=== PATIENT | male | born 1945 | race Caucasian/White ===

== ENCOUNTER 2020-11-26 13:05 | Outpatient (CLI) | payer MEDICARE, OTHER ==
[2020-11-26] MEDS ORDERED: OMNIPAQUE 350 MG/ML, 150 ML BOTTLE ONE (14:30)
== END 2020-11-26 23:59 | disposition home or self-care (01) ==
LOC: CFH 13:05 → RAD 23:59
PROVIDERS: ATTEND Internal Medicine Clinical Cardiac Electrophysiology
DX: I25.10 Atherosclerotic heart disease of native coronary artery without angina pectoris (principal); J84.10 Pulmonary fibrosis, unspecified; I11.0 Hypertensive heart disease with heart failure; I48.91 Unspecified atrial fibrillation; I50.33 Acute on chronic diastolic (congestive) heart failure; J98.4 Other disorders of lung
CPT/HCPCS: 71046; 75572; 82565; Q9967

== ENCOUNTER 2020-11-28 11:11 | Observation (INO) | payer MEDICARE, OTHER ==
[~2020-11-28] VITALS: Ht 182.9 cm; Wt 118.6 kg
[2020-11-28] MEDS ORDERED: SODIUM CHLORIDE 0.9% 1,000 ML IV SCH (12:00)
[2020-11-28] MEDS ORDERED: APIX5TAB PO (12:05)
[2020-11-28] MEDS ORDERED: FURO20TA3 PO (12:05)
[2020-11-28] MEDS ORDERED: SPIR25TA5 PO (12:05)
[2020-11-28] MEDS ORDERED: LISI-170 PO (12:05)
[2020-11-28] MEDS ORDERED: LEVO50TA5 PO (12:05)
[2020-11-28] MEDS ORDERED: AMIO200T42 PO (12:05)
[2020-11-28 12:14] VITALS: BP 117/83
[2020-11-28 12:24] LABS: BASOPHILS % (AUTO) 1 % (0-1); EOSINOPHILS % (AUTO) 1 % (1-7); LYMPHOCYTES % (AUTO) 18 % (22-44); MEAN CORPUSCULAR HEMOGLOBIN 32.6 pg (27.5-34.5); MEAN CORPUSCULAR HGB CONC 33.3 g/dL (33.2-36.2); MEAN PLATELET VOLUME 7.9 fL (7.4-10.4); MONOCYTES % (AUTO) 9 % (2-9); NEUTROPHILS % (AUTO) 71 % (42-75); PLATELET COUNT 170 x10^3/uL (130-400); RED BLOOD COUNT 5.66 x10^6/uL (4.38-5.82); RED CELL DISTRIBUTION WIDTH 18.1 % (9.4-14.8)
[2020-11-28 12:37] LABS: ALANINE AMINOTRANSFERASE 38 U/L (12-78); ALBUMIN 3.6 g/dL (3.4-5.0); ANION GAP 6 mmol/L (5-15); CALCIUM 9.4 mg/dL (8.5-10.1); CHLORIDE 102 mmol/L (98-107)
[2020-11-28 12:40] LABS: ALKALINE PHOSPHATASE 45 U/L (45-117); BILIRUBIN,TOTAL 1.3 mg/dL (0.2-1.0); TOTAL PROTEIN 7.3 g/dL (6.4-8.2)
[2020-11-28] MEDS ORDERED: FENTANYL PF 250 MCG/5ML ONE (13:09)
[2020-11-28] MEDS ORDERED: MIDAZOLAM 1 MG/ML, 2ML ONE (13:09)
[2020-11-28] MEDS ORDERED: LIDOCAINE 2%, 20ML ONE (13:23)
[2020-11-28] MEDS ORDERED: HYDROCORTISONE 100 MG INJ. ONE (13:51)
[2020-11-28] MEDS ORDERED: EPINEPHRINE 1 MG/ML, 1ML ONE (16:36)
[2020-11-28] MEDS ORDERED: HEPARIN 1,000 UNITS/ML, 10ML ONE ×3 (16:36→16:37)
[2020-11-28] MEDS ORDERED: ROCURONIUM 10MG/ML,5ML ONE (16:37)
[2020-11-28] MEDS ORDERED: PROPOFOL 10 MG/ML, 20ML ONE (16:37)
[2020-11-28] MEDS ORDERED: DEXAMETHASONE 4 MG/ML, 1ML ONE (16:37)
[2020-11-28] MEDS ORDERED: ONDANSETRON 2MG/ML, 2ML ONE (17:28)
[2020-11-28] MEDS ORDERED: hydrALAzine 20 MG/ML, 1ML IV PRN (18:00)
[2020-11-28] MEDS ORDERED: EPHEDRINE 50 MG/ML, 1ML IVPush PRN (18:00)
[2020-11-28] MEDS ORDERED: DIPHENHYDRAMINE 50 MG/ML, 1ML IVPush PRN ×2 (18:00)
[2020-11-28] MEDS ORDERED: FENTANYL PF 100 MCG/2ML IV PRN (18:00)
[2020-11-28] MEDS ORDERED: MIDAZOLAM 1 MG/ML, 2ML IV PRN (18:00)
[2020-11-28] MEDS ORDERED: DIAZEPAM 5 MG/ML, 2ML IVPush PRN (18:00)
[2020-11-28] MEDS ORDERED: PROMETHAZINE 25 MG/ML, 1ML IVPush PRN (18:00)
[2020-11-28] MEDS ORDERED: MEPERIDINE/PF 25MG/0.5ML IVPush PRN (18:00)
[2020-11-28] MEDS ORDERED: PROMETHAZINE 12.5 MG SUPP PR PRN (18:00)
[2020-11-28] MEDS ORDERED: LABETALOL 5MG/ML, 20ML IV PRN (18:00)
[2020-11-28] MEDS ORDERED: ONDANSETRON 2MG/ML, 2ML IVPush PRN ×2 (18:00)
[2020-11-28] MEDS ORDERED: OXYcodone 5 MG/5 ML ORAL.SOL UDC PO PRN (18:00)
[2020-11-28] MEDS ORDERED: ALBUTEROL SULFATE 2.5 MG/3 ML NPPB PRN (18:00)
[2020-11-28] MEDS ORDERED: HYDROmorphone 1 MG/ML, 1ML INJ IVPush PRN (18:00)
[2020-11-28] MEDS ORDERED: ACETAMINOPHEN 325 MG TABLET PO PRN ×2 (18:00)
[2020-11-28] MEDS ORDERED: APIXABAN 5 MG TABLET ONE (18:17)
[2020-11-28 20:00] VITALS: BP 104/70
[2020-11-28] MEDS ORDERED: ZOLPIDEM 5MG TABLET PO PRN (21:00)
[2020-11-28] MEDS: APIXABAN 5 MG TABLET PO SCH (22:23)
[2020-11-28] MEDS: COLCHICINE 0.6 MG CAPSULE PO SCH (22:23)
[2020-11-29] VITALS: BP 105/69
[2020-11-29] MEDS ORDERED: PANTOPRAZOLE 20MG TABLET PO SCH (06:00)
[2020-11-29 08:06] VITALS: BP 118/76
[2020-11-29] MEDS: APIXABAN 5 MG TABLET PO SCH (08:14)
[2020-11-29] MEDS: COLCHICINE 0.6 MG CAPSULE PO SCH (08:14)
[2020-11-29] MEDS ORDERED: COLC0.6C3 PO (08:26)
[2020-11-29] MEDS ORDERED: PANT20TA4 PO (08:26)
[2020-11-29] MEDS ORDERED: ACET325T26 PO (08:26)
[2020-11-29 08:40] VITALS: BP 118/73
== END 2020-11-29 11:29 | disposition home or self-care (01) ==
LOC: CACL 11:11 → ORIP 18:37 → 5SO 19:11
PROVIDERS: ADMIT Internal Medicine Clinical Cardiac Electrophysiology; ATTEND Internal Medicine Clinical Cardiac Electrophysiology
DX: I48.0 Paroxysmal atrial fibrillation (principal); Z20.822 Contact with and (suspected) exposure to COVID-19; I48.92 Unspecified atrial flutter; D68.69 Other thrombophilia; I42.9 Cardiomyopathy, unspecified; I10 Essential (primary) hypertension; E66.9 Obesity, unspecified; E03.9 Hypothyroidism, unspecified; Z79.01 Long term (current) use of anticoagulants; Z79.899 Other long term (current) drug therapy
CPT/HCPCS: 36415; 76937; 80053; 85025; 85347; 93005; 93306; 93312; 93321; 93325; 93613; 93655; 93656; 93657; 93662; C1730; C1732; C1759; C1766; C1893; C1894; G0378; J0171; J1100; J1644; J1720; J2250; J2405; J2704; J3010; J3490; U0003; U0005

== ENCOUNTER 2020-11-30 16:39 | Observation (INO) | payer MEDICARE, OTHER ==
[~2020-11-30] VITALS: Ht 182.9 cm; Wt 115.3 kg
[~2020-11-30 16:39] MED LIST: ACET325T26 PO; AMIO200T42 PO; APIX5TAB PO; COLC0.6C3 PO; FURO20TA3 PO; LEVO50TA5 PO; LISI-170 PO; PANT20TA4 PO; SPIR25TA5 PO
[2020-11-30 17:19] LABS: BASOPHILS % (AUTO) 0 % (0-1); EOSINOPHILS % (AUTO) 0 % (1-7); LYMPHOCYTES % (AUTO) 5 % (22-44); MEAN CORPUSCULAR HEMOGLOBIN 33.4 pg (27.5-34.5); MEAN CORPUSCULAR HGB CONC 33.4 g/dL (33.2-36.2); MEAN PLATELET VOLUME 7.9 fL (7.4-10.4); MONOCYTES % (AUTO) 11 % (2-9); NEUTROPHILS % (AUTO) 83 % (42-75); PLATELET COUNT 115 x10^3/uL (130-400); RED BLOOD COUNT 4.99 x10^6/uL (4.38-5.82); RED CELL DISTRIBUTION WIDTH 19.2 % (9.4-14.8)
[2020-11-30] MEDS ORDERED: MORPHINE SULFATE 4 MG/ML, 1ML ONE ×2 (17:25→18:14)
[2020-11-30 17:28] LABS: ALANINE AMINOTRANSFERASE 41 U/L (12-78); ALBUMIN 3.2 g/dL (3.4-5.0); ANION GAP 6 mmol/L (5-15); CALCIUM 8.5 mg/dL (8.5-10.1); CHLORIDE 100 mmol/L (98-107)
[2020-11-30] MEDS: MORPHINE SULFATE 4 MG/ML, 1ML IVPush PRN ×2 (17:30→18:16)
[2020-11-30] MEDS ORDERED: SODIUM CHLORIDE FLUSH 10ML SYR IVF ONE (17:30)
[2020-11-30 17:33] LABS: ALKALINE PHOSPHATASE 40 U/L (45-117); BILIRUBIN,TOTAL 1.5 mg/dL (0.2-1.0); CREATININE 1.49 mg/dL (0.7-1.3); TOTAL PROTEIN 6.7 g/dL (6.4-8.2)
[2020-11-30 17:40] LABS: TROPONIN I 0.135 ng/mL (0.000-0.045)
[2020-11-30] MEDS ORDERED: SODIUM CHLORIDE 0.9%, 500ML IVBOLUS ONE (18:00)
--- NOTE | 2020-11-30 18:15 | NUR ---
PT BACK FROM RADIOLOGY. PT REPORTS PAIN HAS IMPROVED TO A 10/05. PT ON CONTINUOUS CARDIAC AND SPO2 MONITORING. CALL LIGHT W/IN REACH. PT SPOUSE AT BEDSIDE.
--- NOTE | 2020-11-30 18:36 | NUR ---
PT'S PAIN HAS IMPROVED TO A 5/10. PT DENIES NEEDS AT THIS TIME. VSS.
--- NOTE | 2020-11-30 19:21 | NUR ---
PT ASSISTED TO LAYING IN GURNEY ON RIGHT SIDE, TOLERATING WELL. PT INITIALLY UNABLE TO LAY FLAT. PT PAIN 5/10. DENIES FURTHER NEEDS AT THIS TIME. VSS.
[2020-11-30] MEDS ORDERED: FENTANYL PF 100 MCG/2ML ONE (19:26)
[2020-11-30] MEDS ORDERED: COLCHICINE 0.6 MG CAPSULE ONE (19:26)
[2020-11-30] MEDS ORDERED: COLCHICINE 0.6 MG CAPSULE PO ONE (19:30)
[2020-11-30] MEDS ORDERED: FENTANYL PF 100 MCG/2ML IVPush ONE (19:30)
--- NOTE | 2020-11-30 20:05 | NUR ---
REPORT CALLED TO ADILSON VALENZUELA. PT READY TO GO TO 515.
[2020-11-30] MEDS ORDERED: MELATONIN 5 MG TABLET PO PRN (20:30)
[2020-11-30] MEDS ORDERED: DOCUSATE 100 MG CAPSULE PO PRN (20:30)
[2020-11-30] MEDS ORDERED: ACETAMINOPHEN 325 MG TABLET PO PRN ×2 (20:30)
[2020-11-30] MEDS ORDERED: ONDANSETRON 2MG/ML, 2ML IVPush PRN (20:30)
[2020-11-30] MEDS: COLCHICINE 0.6 MG CAPSULE PO SCH (20:48)
[2020-11-30 20:56] VITALS: BP 107/74
[2020-11-30] MEDS: APIXABAN 5 MG TABLET PO SCH (22:05)
[2020-11-30] MEDS: morphine SULFATE 10 MG/ML, 1ML IVPush PRN ×2 (22:05→22:36)
[2020-11-30] MEDS: FUROSEMIDE 20 MG TABLET PO SCH (22:05)
[2020-11-30 23:49] LABS: TROPONIN I 0.082 ng/mL (0.000-0.045)
[2020-12-01 01:35] VITALS: BP 101/64
[2020-12-01] MEDS: morphine SULFATE 10 MG/ML, 1ML IVPush PRN ×3 (01:35→06:41)
[2020-12-01 05:29] LABS: BASOPHILS % (AUTO) 0 % (0-1); EOSINOPHILS % (AUTO) 0 % (1-7); LYMPHOCYTES % (AUTO) 8 % (22-44); MEAN CORPUSCULAR HEMOGLOBIN 32.8 pg (27.5-34.5); MEAN CORPUSCULAR HGB CONC 33.1 g/dL (33.2-36.2); MEAN PLATELET VOLUME 8.3 fL (7.4-10.4); MONOCYTES % (AUTO) 12 % (2-9); NEUTROPHILS % (AUTO) 80 % (42-75); PLATELET COUNT 137 x10^3/uL (130-400); RED BLOOD COUNT 4.91 x10^6/uL (4.38-5.82); RED CELL DISTRIBUTION WIDTH 17.9 % (9.4-14.8)
[2020-12-01 05:36] LABS: ANION GAP 3 mmol/L (5-15); CALCIUM 8.3 mg/dL (8.5-10.1); CHLORIDE 101 mmol/L (98-107)
[2020-12-01 05:41] LABS: CREATININE 1.31 mg/dL (0.7-1.3); TROPONIN I 0.057 ng/mL (0.000-0.045)
[2020-12-01] MEDS ORDERED: PANTOPRAZOLE 20MG TABLET PO SCH (06:00)
[2020-12-01] MEDS ORDERED: LEVOTHYROXINE 200 MCG TABLET PO SCH (06:00)
[2020-12-01 06:26] VITALS: BP 110/87
[2020-12-01] MEDS ORDERED: TIZA4TAB2 PO (07:29)
[2020-12-01] MEDS ORDERED: TIZANIDINE 4MG TABLET PO SCH (07:30)
[2020-12-01] MEDS ORDERED: LISINOPRIL 20 MG TABLET PO SCH (09:00)
[2020-12-01] MEDS ORDERED: SPIRONOLACTONE 25 MG TABLET PO SCH (09:00)
[2020-12-01] MEDS: APIXABAN 5 MG TABLET PO SCH (09:38)
[2020-12-01] MEDS: COLCHICINE 0.6 MG CAPSULE PO SCH (09:38)
[2020-12-01] MEDS: FUROSEMIDE 20 MG TABLET PO SCH (09:38)
[2020-12-01] MEDS ORDERED: HYDROcodone/APAP 5/325 TABLET PO PRN (10:00)
[2020-12-01] MEDS ORDERED: HYDR-2214 PO (11:38)
== END 2020-12-01 11:18 | disposition home or self-care (01) ==
LOC: ED 17:00 → INTOOBSV 19:37 → EDIP 19:37 → 5SO 20:28
PROVIDERS: ADMIT Emergency Medicine; ATTEND Family Medicine
DX: G89.18 Other acute postprocedural pain (principal); R07.89 Other chest pain; M79.81 Nontraumatic hematoma of soft tissue; I48.19 Other persistent atrial fibrillation; I48.92 Unspecified atrial flutter; I11.0 Hypertensive heart disease with heart failure; I50.20 Unspecified systolic (congestive) heart failure; I25.5 Ischemic cardiomyopathy; E87.1 Hypo-osmolality and hyponatremia; E03.9 Hypothyroidism, unspecified; E80.6 Other disorders of bilirubin metabolism; J98.11 Atelectasis; I27.20 Pulmonary hypertension, unspecified; N28.9 Disorder of kidney and ureter, unspecified; E66.2 Morbid (severe) obesity with alveolar hypoventilation; Z85.828 Personal history of other malignant neoplasm of skin; Z79.899 Other long term (current) drug therapy; Z86.79 Personal history of other diseases of the circulatory system
CPT/HCPCS: 36415; 71045; 71275; 80048; 80053; 83036; 83690; 83735; 84484; 85025; 85379; 93005; 96374; 96375; 96376; 99285; G0378; J2270; J3010; J7040